=== PATIENT | male | born 1955 | race Caucasian/White ===

== ENCOUNTER 2025-01-02 10:22 | Emergency (ER) | payer MEDICARE ==
[~2025-01-02] VITALS: Ht 180.3 cm; Wt 97.0 kg
[2025-01-02 12:18] LABS: BASO % 0.4 % (0.0-1.0); EOS # 0.1 10^3/uL (0.0-0.5); EOS % 0.7 % (0.0-3.0); HEMATOCRIT 45.8 % (42.0-52.0); HEMOGLOBIN 14.9 g/dl (13.5-17.5); LYMPH # 0.4 10^3/uL (1.5-5.0); LYMPH % 4.6 % (24.0-44.0); MEAN CORPUSCULAR HEMOGLOBIN 29.4 pg (27.0-33.0); MEAN CORPUSCULAR HGB CONC 32.5 g/dl (32.0-36.5); MEAN CORPUSCULAR VOLUME 90.5 fl (80.0-96.0); MONO # 0.7 10^3/uL (0.0-0.8); MONO % 7.6 % (2.0-8.0); NEUTROPHILS # 7.3 10^3/uL (1.5-8.5); NEUTROPHILS % 86.2 % (36.0-66.0); PLATELET COUNT, AUTOMATED 192 10^3/uL (150-450); RED BLOOD COUNT 5.06 10^6/uL (4.30-6.10); WHITE BLOOD COUNT 8.5 10^3/uL (4.0-10.0)
[2025-01-02 12:50] LABS: ETHYL ALCOHOL (ETHANOL) 0.007 % (0.000-0.010)
[2025-01-02 12:52] LABS: BLOOD UREA NITROGEN 11 MG/DL (9-23); CALCIUM LEVEL 8.9 MG/DL (8.3-10.6); CARBON DIOXIDE LEVEL 30 MMOL/L (20-31); CHLORIDE LEVEL 98 MMOL/L (98-107); CREATININE FOR GFR 0.63 MG/DL (0.70-1.30); GLOMERULAR FILTRATION RATE > 60.0 (>42); GLUCOSE, FASTING 102 MG/DL (74-106); POTASSIUM SERUM 5.3 MMOL/L (3.5-5.1); SODIUM LEVEL 135 MMOL/L (136-145)
[2025-01-02 12:54] LABS: FREE T4 1.04 NG/DL (0.89-1.76)
[2025-01-02 12:55] LABS: THYROID STIMULATING HORMONE 1.725 uIU/ML (0.55-4.78)
[2025-01-02 13:42] LABS: INR 0.89; PARTIAL THROMBOPLASTIN TIME 32.4 SECONDS (24.8-34.2); PROTHROMBIN TIME 12.3 SECONDS (12.5-14.5)
[2025-01-02] MEDS ORDERED: PROHANCE 279.3MG/ML 5ML VIAL As Ordered ONE (17:06)
[2025-01-02] MEDS ORDERED: PROHANCE 279.3MG/ML 15ML VIAL As Ordered ONE (17:06)
[2025-01-02] MEDS: ASPIRIN 325 MG TAB PO ONE (20:44)
[2025-01-02] MEDS: SIMVASTATIN 40 MG TAB PO ONE (23:28)
[2025-01-03 00:08] VITALS: BP 110/66; TEMP 99; O2SAT 95
== END 2025-01-03 00:11 | disposition short-term general hospital (02) ==
LOC: M ED 10:22
DX: I67.9 Cerebrovascular disease, unspecified (principal); D43.2 Neoplasm of uncertain behavior of brain, unspecified; R91.8 Other nonspecific abnormal finding of lung field; S32.040A Wedge compression fracture of fourth lumbar vertebra, initial encounter for closed fracture; X58.XXXA Exposure to other specified factors, initial encounter; M51.369 Other intervertebral disc degeneration, lumbar region without mention of lumbar back pain or lower extremity pain; M48.061 Spinal stenosis, lumbar region without neurogenic claudication; I10 Essential (primary) hypertension; F17.200 Nicotine dependence, unspecified, uncomplicated
CPT/HCPCS: 36415; 70450; 70553; 71046; 72158; 80048; 82077; 83605; 83735; 84439; 84443; 85025; 85610; 85652; 85730; 86140; 93005; 99284; A9576

== ENCOUNTER → 2025-02-17 | Outpatient (CLI) | payer MEDICARE ==
[~2025-02-17] MED LIST: PROHANCE 279.3MG/ML 15ML VIAL As Ordered ONE; PROHANCE 279.3MG/ML 5ML VIAL As Ordered ONE
== END ==
LOC: M RAD 08:09
PROVIDERS: ATTEND Neurological Surgery
DX: D43.2 Neoplasm of uncertain behavior of brain, unspecified (principal); R26.81 Unsteadiness on feet
CPT/HCPCS: 70553; A9576